=== PATIENT | male | born 1970 | race American Indian/Alaskan Native ===

== ENCOUNTER 2018-08-09 14:16 | Emergency (ER) | payer BC ==
--- NOTE | 2018-08-09 14:32 | Emergency Department Report ---
Blank Doc - Documentation Documentation: This is a 48-year-old male that presents with right knee pain s/p injury at wo rk. This initial assessment/diagnostic orders/clinical plan/treatment(s) is/are subject to change based on patient's health status, clinical progression and re- assessment by fellow clinical providers in the ED. Further treatment and workup at subsequent clinical providers discretion. Patient/guardians urged not to elope from the ED as their condition may be serious if not clinically assessed and managed. Initial orders include: 1- Patient sent to [facility] for further evaluation and treatment 2- xray
[2018-08-09 14:33] VITALS: BP 101/61
--- NOTE | 2018-08-09 15:14 | XRay Report ---
RIGHT KNEE 3 VIEW(S) INDICATION / CLINICAL INFORMATION: knee pain COMPARISON: None available. FINDINGS: BONES / JOINT(S): No acute fracture or subluxation. No joint effusion. No significant arthritis. Mild chronic appearing ossification at the lower pole of the patella could be related to chronic patellar tendinosis/tendinitis. SOFT TISSUES: No significant abnormality. ADDITIONAL FINDINGS: None. Signer Name: Maury Aldridge MD Signed: 08/09/2018 3:09 PM Workstation Name: [id number]
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
== END 2018-08-09 16:33 | disposition home or self-care (01) ==
LOC: ED 14:16
DX: M76.51 Patellar tendinitis, right knee (principal); F17.200 Nicotine dependence, unspecified, uncomplicated; Z90.81 Acquired absence of spleen; Z79.1 Long term (current) use of non-steroidal anti-inflammatories (NSAID); Y29.XXXA Contact with blunt object, undetermined intent, initial encounter; Y93.89 Activity, other specified; Y92.69 Other specified industrial and construction area as the place of occurrence of the external cause; Y99.8 Other external cause status
CPT/HCPCS: 99283